=== PATIENT | male | born 1985 | race American Indian/Alaskan Native ===

== ENCOUNTER 2016-07-19 05:39 | Emergency (ER) | payer SELFPAY | END 2016-07-19 06:05 | disposition left against medical advice (07) | LOC: ED 05:39 | DX: R10.9 Unspecified abdominal pain (principal); G47.00 Insomnia, unspecified; Z53.21 Procedure and treatment not carried out due to patient leaving prior to being seen by health care provider ==

== ENCOUNTER 2016-09-13 20:09 | Emergency (ER) | payer MEDICAID ==
[2016-09-13 20:31] VITALS: BP 126/71
[2016-09-13 20:47] LABS: Basophils % (Auto) 0.4 % (0.0-1.8); Eosinophils % (Auto) 1.4 % (0.0-4.3); Hematocrit 40.4 % (35.5-45.6); Hemoglobin 13.5 gm/dl (11.8-15.2); Mean Corpuscular HGB Conc 33 % (32-34); Mean Corpuscular Hemoglobin 31 pg (28-32); Mean Corpuscular Volume 92 fl (84-94); Platelet Count 229 K/mm3 (140-440); Red Blood Count 4.41 M/mm3 (3.65-5.03); Red Cell Distribution Width 12.4 % (13.2-15.2); White Blood Count 6.4 K/mm3 (4.5-11.0)
[2016-09-13 20:57] LABS: Urine Drugs of Abuse Note Disclamer
[2016-09-13 21:13] LABS: Bilirubin,Urine NEG (Negative); Blood,Urine NEG (Negative); Ketones,Urine NEG (Negative); Leukocyte Esterase,Urine NEG (Negative); Mucus,Urine 3+ /HPF; Nitrite,Urine NEG (Negative); Protein,Urine <15 mg/dL mg/dL (Negative)
[2016-09-13 21:36] LABS: Anion Gap 15 mmol/L; Blood Urea Nitrogen 14 mg/dL (9-20); Calcium 8.7 mg/dL (8.4-10.2); Carbon Dioxide 24 mmol/L (22-30); Glucose 124 mg/dL (75-100); Potassium 3.7 mmol/L (3.6-5.0); Sodium 138 mmol/L (137-145)
== END 2016-09-13 21:15 | disposition left against medical advice (07) ==
LOC: EEVIPCON 20:09 → ED 20:09
DX: Z00.8 Encounter for other general examination (principal); Z53.21 Procedure and treatment not carried out due to patient leaving prior to being seen by health care provider
CPT/HCPCS: 36415; 80048; 80307; 81001; 85025; G0480; 80320

== ENCOUNTER 2017-05-06 00:37 | Emergency (ER) | payer MEDICAID ==
[2017-05-06 01:20] VITALS: BP 123/71
== END 2017-05-06 06:10 | disposition left against medical advice (07) ==
LOC: ED 00:37
DX: Z53.21 Procedure and treatment not carried out due to patient leaving prior to being seen by health care provider (principal)